=== PATIENT | male | born 1970 | race African-American/Black ===

== ENCOUNTER 2017-04-26 14:05 | Emergency (ER) | payer SELFPAY ==
[~2017-04-26] VITALS: Ht 182.9 cm; Wt 111.0 kg
[2017-04-26 14:06] VITALS: BP 165/76; PULSE 87; RESP 18; TEMP 98.5; O2SAT 97
[2017-04-26] MEDS ORDERED: PRED20 PO (16:29)
[2017-04-26] MEDS ORDERED: BENZ100 PO (16:29)
[2017-04-26] MEDS ORDERED: AZIT250T3 PO (16:29)
--- NOTE | 2017-04-26 16:33 | PD ---
HPI Chief Complaint: Cold / Flu Symptoms Time Seen by Provider: 16:19 Travel History International Travel<30 days: No Contact w/Intl Traveler<30days: No Traveled to known affect area: No History of Present Illness HPI 47-year-old male that presents to the ED for evaluation of cold like symptoms. Patient has a history of cold like symptoms for about 8 days. Having fevers cough and runny nose. Per patient he does have some blood in his nostril when he blows his nose and some blood when he coughs. He states having a sore throat. Denies any chest pain or shortness of breath other than with cough. No history of asthma or COPD. No recent travel. No history of HIV or any other medical complaints. Per patient the discomfort is 6 out of 10 when he coughs. Otherwise minimal symptoms. Per patient he has a family member was recently diagnosed with bronchitis and given azithromycin without improvement of symptoms and is concerned that he may need the same. No other medical issues. No abdominal pain. No nausea or vomiting. PFSH Social History Alcohol Use: No Tobacco Use: No Substance Use: No Allergies-Medications (Allergen,Severity, Reaction): Coded Allergies: No Known Allergies (Unverified , 04/26/17) Reported Meds & Prescriptions Reported Meds & Active Scripts Active Tessalon Perles (Benzonatate) 100 Mg Cap 100 Mg PO TID PRN Azithromycin 250 Mg Tab 250 Mg PO DIRECTED Take 2 tabs (500 mg) on day 1 then 1 tab daily x 4 days. Prednisone 20 Mg Tab 20 Mg PO BID 5 Days Review of Systems Except as stated in HPI: all other systems reviewed are Neg Physical Exam Narrative GENERAL: Well-nourished, well-developed patient in no apparent distress. SKIN: Warm and dry. HEAD: Atraumatic. Normocephalic. EYES: Pupils equal and round reactive to light and accommodation. No scleral icterus. No injection or drainage. ENT: No nasal bleeding or discharge. Mucous membranes pink and moist. TMs are clear with no sign of infection or perforation. No mastoid tenderness. Ear canals are intact bilaterally. No lymphadenopathy. Nostril mucosa is red and moist with clear mucus noted. No sinus tenderness to palpation noted. Tonsils are not enlarged or swollen. No ulvua Deviation. Tongue is midline. NECK: Trachea midline. No JVD. No meningeal signs noted CARDIOVASCULAR: Regular rate and rhythm. RESPIRATORY: No accessory muscle use. Clear to auscultation. Breath sounds equal bilaterally. GASTROINTESTINAL: Abdomen soft, non-tender, nondistended. Hepatic and splenic margins not palpable. MUSCULOSKELETAL: Extremities without clubbing, cyanosis, or edema. No obvious deformities. NEUROLOGICAL: Awake and alert. No obvious cranial nerve deficits. Motor grossly within normal limits. Five out of 5 muscle strength in the arms and legs. Normal speech. PSYCHIATRIC: Appropriate mood and affect; insight and judgment normal. Data Data Last Documented VS Vital Signs Date Time Temp Pulse Resp B/P (MAP) Pulse Ox O2 Delivery O2 Flow Rate FiO2 04/26/17 14:06 98.5 87 18 165/76 (105) 97 Room Air Orders Orders Ed Discharge Order (04/26/17 16:29) [facility] Medical Decision Making Medical Screen Exam Complete: Yes Emergency Medical Condition: Yes Medical Record Reviewed: Yes Differential Diagnosis Bronchitis versus sinusitis versus pneumonia versus URI Narrative Course 47-year-old male that presents to the ED for evaluation of cold like symptoms. Patient was properly examined and was found to have signs and symptoms which appear to be very consistent with bronchitis. Patient is not tachycardic and has no risk factors for PE and I doubt that this is PE. Symptoms appear to be more consistent with bronchitis. Wells score is low risk. Lungs and physical exam are reassuring. This time I do recommend trial of antibiotics and prednisone as well as cough medication. Patient does appear to have slight tonsillitis although does not appear to be actively infected. It could be the cause of some of the blood that he seemed when he coughs. Patient agrees with plan. Patient understands reasons to come back. Follow with PCP. See ED worsening symptoms. Diagnosis Primary Impression: Bronchitis Patient Instructions: General Instructions Additional Instructions: Motrin and Tylenol for pain and fever. You can use [id number] antihistamine as well as well as Mucinex as needed for runny nose and congestion. Cough drops for cough as needed. Drink plenty of fluids. Follow-up with PCP. See ED for worsening symptoms. Med/Other Pt SpecificInfo: Prescription(s) given Scripts Benzonatate (Tessalon Perles) 100 Mg Cap 100 MG PO TID Y for COUGH, #20 CAP 0 Refills Prov: Young Tran MD 2/7/18 Azithromycin (Azithromycin) 250 Mg Tab 250 MG PO DIRECTED for Infection, #6 TAB 0 Refills Take 2 tabs (500 mg) on day 1 then 1 tab daily x 4 days. Prov: Young Tran MD 04/26/17 Prednisone (Prednisone) 20 Mg Tab 20 MG PO BID for 5 Days, #10 TAB 0 Refills Prov: Young Tran MD 04/26/17 Disposition: 01 DISCHARGE HOME Condition: Stable Horace Vann Apr 26, 2017 16:33
== END 2017-04-26 17:04 | disposition home or self-care (01) ==
LOC: NEPK 14:05
DX: J40 Bronchitis, not specified as acute or chronic (principal)
CPT/HCPCS: 99283